=== PATIENT | male | born 1965 | race Caucasian/White ===

== ENCOUNTER 2017-06-29 10:25 | Emergency (ER) | payer OTHER, MEDICAID ==
[~2017-06-29] VITALS: Ht 182.9 cm; Wt 87.1 kg
[2017-06-29 10:33] VITALS: BP 140/85
== END 2017-06-29 12:05 | disposition home or self-care (01) ==
LOC: ED 10:25
DX: L02.31 Cutaneous abscess of buttock (principal); E78.00 Pure hypercholesterolemia, unspecified
CPT/HCPCS: J2001